=== PATIENT | female | born 1955 | race Caucasian/White ===

== ENCOUNTER 2021-06-20 22:06 | Emergency (ER) | payer SELFPAY ==
[2021-06-21 03:27] LABS: HEMOGLOBIN 15.4 gm/dl (12.3-15.3); RED BLOOD COUNT 5.3 M/UL (4.00-5.10); WHITE BLOOD COUNT 7.2 K/UL (4.5-11.0)
[2021-06-21 04:05] LABS: BUN/CREATININE RATIO 15 (0-10)
== END 2021-06-21 10:03 | disposition home or self-care (01) ==
LOC: ER1 22:06
PROVIDERS: Physician Assistant
DX: U07.1 COVID-19 (principal); J12.82 Pneumonia due to coronavirus disease 2019; E87.6 Hypokalemia; E04.1 Nontoxic single thyroid nodule; I10 Essential (primary) hypertension
CPT/HCPCS: 71045; 80053; 82550; 82553; 83874; 83880; 84484; 85025; 85379; 93005; 99285; Q9967

== ENCOUNTER 2021-06-29 21:19 | Emergency (ER) | payer MEDICARE ==
[2021-06-29 22:44] LABS: HEMOGLOBIN 13.6 gm/dl (12.3-15.3); RED BLOOD COUNT 4.87 M/UL (4.00-5.10); WHITE BLOOD COUNT 10.1 K/UL (4.5-11.0)
[2021-06-29 23:03] LABS: BUN/CREATININE RATIO 10 (0-10)
[2021-06-30] MEDS ORDERED: KLOR-CON 1010 MEQ PO (00:22)
== END 2021-06-30 00:36 | disposition home or self-care (01) ==
LOC: ER1 21:19
PROVIDERS: Physician Assistant Medical
DX: U07.1 COVID-19 (principal); I10 Essential (primary) hypertension; Z87.891 Personal history of nicotine dependence
CPT/HCPCS: 71045; 80053; 84484; 85025; 85379; 93005; 99285

== ENCOUNTER → 2021-07-30 | Outpatient (CLI) | payer MEDICARE, OTHER ==
[~2021-07-30] MED LIST: KLOR-CON 1010 MEQ PO
== END ==
LOC: EXRD 07-18 14:00
DX: E04.1 Nontoxic single thyroid nodule (principal)
CPT/HCPCS: 76536